=== PATIENT | female | born 1955 | race Caucasian/White ===

== ENCOUNTER → 2017-02-04 | Outpatient (CLI) | payer BC ==
[~2017-02-04] MED LIST: ADVIL200 MG PO; CARDI-OMEGA1000 MG PO; DEXILANT60 MG PO; FAMVIR 500500 MG/TAB PO; FLONASEALLERGY NS; HCTZ 25MG TAB25 MG PO; INH; NORCO 325 MG-51 TAB PO; NORCO 325 MG-7.1 TAB PO; PROAIR HFA0.09 MG/AC IH; ZOCOR 20MG20 MG PO; ZOFRAN 4MG T4 MG/TAB PO
== END ==
LOC: MC.RAD 07:39
DX: Z12.31 Encounter for screening mammogram for malignant neoplasm of breast (principal)

== ENCOUNTER 2017-06-24 02:46 | Emergency (ER) | payer BC ==
[~2017-06-24] VITALS: Ht 165.1 cm; Wt 95.5 kg
[2017-06-24 02:49] VITALS: BP 145/77; PULSE 96; TEMP 97.7
== END 2017-06-24 03:45 | disposition home or self-care (01) ==
LOC: COL.ER 02:46
DX: S01.81XA Laceration without foreign body of other part of head, initial encounter (principal); Z23 Encounter for immunization; W06.XXXA Fall from bed, initial encounter; W22.8XXA Striking against or struck by other objects, initial encounter; Y92.009 Unspecified place in unspecified non-institutional (private) residence as the place of occurrence of the external cause

== ENCOUNTER 2017-07-01 17:05 | Emergency (ER) | payer BC ==
[2017-07-01 17:17] VITALS: BP 190/89; PULSE 74; TEMP 97.5
== END 2017-07-01 17:44 | disposition home or self-care (01) ==
LOC: COL.ER 17:05
DX: S01.312D Laceration without foreign body of left ear, subsequent encounter (principal); X58.XXXD Exposure to other specified factors, subsequent encounter

== ENCOUNTER → 2018-09-16 | Outpatient (CLI) | payer MEDICARE, BC | LOC: MC.RAD 08:54 | DX: Z12.31 Encounter for screening mammogram for malignant neoplasm of breast (principal) ==

== ENCOUNTER 2019-07-26 09:08 | Day surgery (SDC) | payer MEDICARE, BC ==
[2019-07-26] VITALS (553 sets, daily range): BP systolic 97–191; BP diastolic 64–98; PULSE 80–104; TEMP 97.3–98.6; O2SAT 92–99
[~2019-07-26] VITALS: Ht 165.2 cm; Wt 100.0 kg
[2019-07-26 09:56] LABS: HEMATOCRIT 46.5 % (37.0-47.0); HEMOGLOBIN 15.7 g/dl (12.5-16.0); MEAN CELL VOLUME 90 fl (80.0-100.0); MEAN CORPUSCULAR HEMOGLOBIN 31 pg (27.0-31.0); MEAN CORPUSCULAR HGB CONC 34 g/dl (33.0-37.0); MEAN PLATELET VOLUME 8.9 fl (7.4-10.4); PLATELET COUNT 358 K/mm3 (130-400); RED BLOOD COUNT 5.15 M/mm3 (4.10-5.30); REDCELL DISTRIBUTION WIDTH-CV 13.3 % (11.5-14.5)
[2019-07-26 10:05] LABS: PROTHROMBIN TIME 11.9 SECONDS (9.7-12.8)
[2019-07-26 10:08] LABS: PARTIAL THROMBOPLASTIN TIME 30.5 SECONDS (26.0-37.0)
[2019-07-26 10:08] LABS: CALCIUM 9.6 mg/dL (8.4-10.2); CREATININE, serum 0.62 (0.52-1.25); POTASSIUM 4.2 mmol/L (3.4-5.0)
--- NOTE | 2019-07-26 11:34 | NUR ---
SEE MERGE DOCUMENTATION FOR MEDICATION ADMINISTRATION TIMES AND INTRA/POST PROCEDURE SEDATION ASSESSMENTS. PLAN FOR RIGHT RADIAL ACCESS; BARBEAU TEST POSITIVE ON RIGHT HAND. PT PRETREATED FOR IODINE ALLERGY PER PHYSICIAN ORDER.
--- NOTE | 2019-07-26 13:00 | NUR ---
Phone report received from [employer] geoscience laboratory technician Rn at 1250. Pt arrived to ICU bed 5 via bed at 1300. Pt A/O x3. Denies any pain. Right TR band inflated with 14cc air. No hematoma present. Right hand dusky, slow cap refill, radial pulse +1. Verified TR band, right hand circulation and pulse with geoscience laboratory technician RNs. Pt remains on Nitro gtt through Left AC PIV. VSS. Discussed plan of care with pt r/t post cardiac cath checks, TR band, Nitro gtt and medications. Pt verbalized understanding. Call light in reach.
--- NOTE | 2019-07-26 14:45 | NUR ---
Attempted to take 5ml of air out of TR band. Pt started bleeding from incision site. 5ml air reinflated into TR band. Bleeding stopped. No hematoma present. right radial pulse +1. Cap refill >3sec. Updated pt on plan of care r/t TR band and vital signs. Pt verbalized understanding. Call light in reach.
--- NOTE | 2019-07-26 18:00 | NUR ---
Report given to OSMAN Chacon.
--- NOTE | 2019-07-26 18:30 | NUR ---
Pt transferred to [facility] room 15 via wheelchair. Pt walked to bed with steady gait. Pt's and dtr in room. Updated on pt status and plan of care.
--- NOTE | 2019-07-26 19:30 | NUR ---
Report given to Saul BREWER. TR band still in place to right radial artery, but all remaining air removed. Up to BR and voids without difficulty.
[2019-07-27] VITALS (72 sets, daily range): BP systolic 84–133; BP diastolic 51–66; PULSE 66–81; TEMP 97.3; O2SAT 91–96
--- NOTE | 2019-07-27 04:38 | NUR ---
GAVE REPORT OVER THE PHONE TO OSMAN FUNEZ.
--- NOTE | 2019-07-27 04:54 | NUR ---
Pt arrived to floor from [facility]. Patient is alert and oriented with VSS. Pt had cardiac cath done yesterday with stent placement in LAD. Right arm is in stabilizer and site is covered with bandaid. CD&I. no swelling or bleeding noted. pt denies pain in that right arm. pt denies needs at this time. call light within reach, will continue to monitor
[2019-07-27] MEDS ORDERED: BRILINTA90 MG PO (07:55)
[2019-07-27] MEDS ORDERED: ASPIRIN E.C. 8181 MG PO (07:56)
[2019-07-27] MEDS ORDERED: LIPITOR20 MG PO (07:56)
[2019-07-27] MEDS ORDERED: LASIX 20MG TABL20 MG PO (07:56)
[2019-07-27] MEDS ORDERED: COREG12.5 MG PO (07:56)
--- NOTE | 2019-07-27 08:12 | NUR ---
Assessment completed, alert/oriented, vital signs stable, denies any pain or discomfort, right wrist/ radial puncutre site is soft with no signs of hematoma or blleeding, dressing C/D/I, heart RRR/ distal pulses are palapble, lungs CTA/ no resp.difficutly noted, has been in and putting in discharge orders this morning, patient denies needs at this time
--- NOTE | 2019-07-27 08:57 | NUR ---
STEFANIE met with the patient and her , Gadiel (ph#[phone]), to discuss discharge plan. The patient lives outside of [place] with her . She reports independence with ADLs and does not have any DME. The patient's PCP is Dr. Noah Thrasher and she receives her medications at [facility]. She reports no difficulties obtaining her meds. The patient's advanced directives are in EMR. Her DPOA-HC is her and the alternate is Carlos Chapa. The patient plans to return home with her upon discharge. No additional needs at this time.
--- NOTE | 2019-07-27 09:35 | NUR ---
Went in to give patient discharge instructions and she reported feeling lightheaded and like she might pass out, I checked VS and her Blood pressure reading was low at 84/51, I helped her lay down and encouraged her to drink some water, explained that we have started her on some new meds and this likely was the cause and that I would call and see if he wanted to make any changes/ new orders
--- NOTE | 2019-07-27 11:32 | NUR ---
First visit from the sorter pricer. No needs right now.
== END 2019-07-27 13:15 | disposition home or self-care (01) ==
LOC: COL.CAR 09:08 → ICU 13:04 → IMCU 23:41 → MEDICAL 07-27 04:51 → COL.CAR 07-27 13:15
PROVIDERS: Internal Medicine Cardiovascular Disease
DX: I25.10 Atherosclerotic heart disease of native coronary artery without angina pectoris (principal); I25.9 Chronic ischemic heart disease, unspecified; E78.5 Hyperlipidemia, unspecified; I10 Essential (primary) hypertension; Z90.49 Acquired absence of other specified parts of digestive tract; Z82.49 Family history of ischemic heart disease and other diseases of the circulatory system; Z83.3 Family history of diabetes mellitus; Z88.3 Allergy status to other anti-infective agents; Z91.040 Latex allergy status; Z79.82 Long term (current) use of aspirin; Z91.041 Radiographic dye allergy status
CPT/HCPCS: OP; C1725; C1769; C1874; C1887; C9600; J0360; J1200; J1644; J1940; J2250; J3010; J7040; Q9967

== ENCOUNTER 2019-10-01 14:04 | Outpatient (RCR) | payer MEDICARE, BC ==
[~2019-10-01 14:04] MED LIST changes: +ASPIRIN E.C. 8181 MG PO; +BRILINTA90 MG PO; +COREG12.5 MG PO; +LASIX 20MG TABL20 MG PO; +LIPITOR20 MG PO
== END 2019-11-23 | disposition still patient (30) ==
LOC: COL.CR
DX: Z48.812 Encounter for surgical aftercare following surgery on the circulatory system (principal); Z95.5 Presence of coronary angioplasty implant and graft

== ENCOUNTER → 2020-03-01 | Outpatient (CLI) | payer MEDICARE, BC | LOC: MC.RAD 10:49 | DX: Z12.31 Encounter for screening mammogram for malignant neoplasm of breast (principal) ==

== ENCOUNTER 2020-07-16 13:44 | Emergency (ER) | payer MEDICARE, BC ==
[~2020-07-16] VITALS: Ht 165.1 cm; Wt 93.2 kg
[2020-07-16 13:53] VITALS: TEMP 97.9
[2020-07-16 15:30] LABS: BASO # 0.1 (0.0-0.2); BASO % 1.7 % (0.0-2.0); EOS # 0.3 (0.0-0.7); EOS % 3.6 % (0-4.0); GRAN # 4.6 (1.4-6.5); GRAN % 55.6 % (42.2-75.2); HEMATOCRIT 46.4 % (37.0-47.0); HEMOGLOBIN 15.7 g/dl (12.5-16.0); LYMPH # 2.4 (1.2-3.4); LYMPH % 29.3 % (20.0-51.0); MEAN CELL VOLUME 90 fl (80.0-100.0); MEAN CORPUSCULAR HEMOGLOBIN 31 pg (27.0-31.0); MEAN CORPUSCULAR HGB CONC 34 g/dl (33.0-37.0); MEAN PLATELET VOLUME 8.9 fl (7.4-10.4); MONO # 0.8 (0.1-0.6); MONO % 9.4 % (1.7-9.3); PLATELET COUNT 270 K/mm3 (130-400); RED BLOOD COUNT 5.14 M/mm3 (4.10-5.30); REDCELL DISTRIBUTION WIDTH-CV 13.4 % (11.5-14.5)
[2020-07-16 16:06] LABS: ALANINE AMINOTRANSFERASE 36 U/L (4-34); ALBUMIN 4.1 gm/dL (3.5-5.0); ALKALINE PHOSPHATASE 99 U/L (50-136); ANION GAP 9 mmol/L (7-16); AST,SGOT 37 U/L (15-37); BILIRUBIN,TOTAL 0.9 mg/dL (0.0-1.0); BLOOD UREA NITROGEN 15 mg/dL (7-17); CALCIUM 9.2 mg/dL (8.4-10.2); CARBON DIOXIDE 24 mmol/L (22-30); CHLORIDE 105 mmol/L (98-107); CREATININE, serum 0.81 (0.52-1.25); GLUCOSE 87 mg/dL (74-106); POTASSIUM 3.9 mmol/L (3.4-5.0); SODIUM 139 mmol/L (137-145); TOTAL PROTEIN 7.4 gm/dL (6.4-8.2)
[2020-07-16 16:21] LABS: TROPONIN-I < 0.012 ng/mL (0.000-0.035)
[2020-07-16] MEDS ORDERED: NITROSTAT0.4 MG/TAB SL ×3 (16:28→16:46)
[2020-07-16 16:40] VITALS: BP 162/91; PULSE 68
== END 2020-07-16 16:40 | disposition home or self-care (01) ==
LOC: COL.ER 13:44
PROVIDERS: Nurse Practitioner Primary Care
DX: R07.89 Other chest pain (principal); I25.10 Atherosclerotic heart disease of native coronary artery without angina pectoris; Z79.02 Long term (current) use of antithrombotics/antiplatelets; Z79.82 Long term (current) use of aspirin

== ENCOUNTER 2021-06-16 11:01 | Emergency (ER) | payer MEDICARE, BC ==
[~2021-06-16] VITALS: Ht 162.6 cm; Wt 96.4 kg
[~2021-06-16 11:01] MED LIST changes: +NITROSTAT0.4 MG/TAB SL
[2021-06-16 11:50] VITALS: TEMP 98.9
[2021-06-16 13:00] LABS: BASO # 0.1 K/mm3 (0.0-0.2); BASO % 1.6 % (0.0-2.0); EOS # 0.1 K/mm3 (0.0-0.7); GRAN # 5.2 K/mm3 (1.4-6.5); GRAN % 64.8 % (42.2-75.2); HEMATOCRIT 40.1 % (37.0-47.0); HEMOGLOBIN 13.6 g/dl (12.5-16.0); LYMPH # 1.7 K/mm3 (1.2-3.4); LYMPH % 21.6 % (20.0-51.0); MEAN CELL VOLUME 89 fl (80.0-100.0); MEAN CORPUSCULAR HEMOGLOBIN 30 pg (27.0-31.0); MEAN CORPUSCULAR HGB CONC 34 g/dl (33.0-37.0); MEAN PLATELET VOLUME 8.8 fl (7.4-10.4); MONO # 0.9 K/mm3 (0.1-0.6); MONO % 10.8 % (1.7-9.3); PLATELET COUNT 220 K/mm3 (130-400); REDCELL DISTRIBUTION WIDTH-CV 13.5 % (11.5-14.5)
[2021-06-16 13:15] LABS: ALBUMIN 3.6 gm/dL (3.4-4.8); BILIRUBIN,TOTAL 1.3 mg/dL (0.2-1.2); C-REACTIVE PROTEIN 0.38 mg/dL (0.00-0.50); CALCIUM 9.2 mg/dL (8.4-10.2); CREATININE, serum 0.69 mg/dL (0.57-1.11); POTASSIUM 4.4 mmol/L (3.5-4.5); TOTAL PROTEIN 6.6 gm/dL (6.2-8.1)
[2021-06-16 13:51] VITALS: BP 145/98; PULSE 95
== END 2021-06-16 13:51 | disposition home or self-care (01) ==
LOC: COL.ER 11:01
PROVIDERS: Physician Assistant
DX: M51.26 Other intervertebral disc displacement, lumbar region (principal); J45.909 Unspecified asthma, uncomplicated; I25.10 Atherosclerotic heart disease of native coronary artery without angina pectoris; Z79.82 Long term (current) use of aspirin

== ENCOUNTER 2022-10-31 12:45 | Outpatient (RCR) | payer MEDICARE, BC ==
[~2022-10-31 12:45] MED LIST changes: +K-DUR 10 MEQ T10 MEQ PO; +LASIX 40MG TABL40 MG PO; +REPATHA SU140 MG/1 M SQ; +TOPROL XL 25MG25 MG PO
== END 2022-11-03 | disposition home or self-care (01) ==
LOC: MKS.ESL.PT
DX: M54.12 Radiculopathy, cervical region (principal)

== ENCOUNTER 2023-05-28 10:07 | Outpatient (RCR) | payer MEDICARE, BC | END 2023-06-05 | disposition home or self-care (01) | LOC: MKS.ESL.PT | DX: G62.9 Polyneuropathy, unspecified (principal) ==

== ENCOUNTER 2023-07-04 08:15 | Outpatient (RCR) | payer MEDICARE, BC | END 2023-07-06 | disposition home or self-care (01) | LOC: MKS.ESL.PT | DX: M25.561 Pain in right knee (principal); M25.562 Pain in left knee ==

== ENCOUNTER 2023-08-05 09:45 | Outpatient (RCR) | payer MEDICARE, BC | END 2023-08-06 | disposition home or self-care (01) | LOC: MKS.ESL.PT | DX: M25.561 Pain in right knee (principal); M25.562 Pain in left knee ==

== ENCOUNTER 2023-09-02 09:45 | Outpatient (RCR) | payer MEDICARE, BC | END 2023-09-04 | disposition home or self-care (01) | LOC: MKS.ESL.PT | DX: M25.561 Pain in right knee (principal); M25.562 Pain in left knee ==

== ENCOUNTER 2023-12-31 14:23 | Outpatient (RCR) | payer MEDICARE, BC | END 2024-01-04 | disposition home or self-care (01) | LOC: MKS.ESL.PT | DX: M62.81 Muscle weakness (generalized) (principal) ==

== ENCOUNTER 2024-01-29 12:45 | Outpatient (RCR) | payer MEDICARE, BC | END 2024-02-04 | disposition home or self-care (01) | LOC: MKS.ESL.PT | DX: M62.81 Muscle weakness (generalized) (principal) ==

== ENCOUNTER 2024-02-12 08:11 | Emergency (ER) | payer MEDICARE, BC ==
[~2024-02-12] VITALS: Ht 162.6 cm; Wt 90.9 kg
[2024-02-12 08:16] VITALS: TEMP 98.1
[2024-02-12 08:54] LABS: BASO # 0.2 K/mm3 (0.0-0.2); BASO % 1.8 % (0.0-2.0); EOS # 0.1 K/mm3 (0.0-0.7); EOS % 0.7 % (0.0-4.0); GRAN # 6.2 K/mm3 (1.4-6.5); GRAN % 70.6 % (42.2-75.2); HEMATOCRIT 41.6 % (37.0-47.0); LYMPH # 1.2 K/mm3 (1.2-3.4); LYMPH % 13.9 % (20.0-51.0); MEAN CELL VOLUME 90 fl (80.0-100.0); MEAN CORPUSCULAR HEMOGLOBIN 30 pg (27-31); MEAN CORPUSCULAR HGB CONC 34 g/dl (33.0-37.0); MEAN PLATELET VOLUME 9.4 fl (7.4-10.4); MONO # 1.1 K/mm3 (0.1-0.6); MONO % 12.3 % (1.7-9.3); PLATELET COUNT 231 K/mm3 (130-400); RED BLOOD COUNT 4.61 M/mm3 (4.10-5.30)
[2024-02-12 09:31] LABS: ALANINE AMINOTRANSFERASE 12 U/L (0-55); ALBUMIN 3.6 g/dL (3.4-4.8); ALKALINE PHOSPHATASE 62 U/L (40-150); ANION GAP 11 mmol/L (7-16); AST,SGOT 15 U/L (5-34); BLOOD UREA NITROGEN 16 mg/dL (10-20); CALCIUM 9.3 mg/dL (8.4-10.2); CHLORIDE 111 mEq/L (98-107); CREATININE, serum 0.84 mg/dL (0.57-1.11); GLUCOSE 97 mg/dL (70-99); POTASSIUM 4.1 mEq/L (3.5-4.5); SODIUM 142 mEq/L (136-145); TOTAL PROTEIN 6.4 g/dl (6.2-8.1)
[2024-02-12 09:40] LABS: TROPONIN-I < 0.010 ng/mL (0.00-0.033)
[2024-02-12 11:03] VITALS: BP 152/74; PULSE 75
== END 2024-02-12 11:03 | disposition home or self-care (01) ==
LOC: COL.ER 08:11
PROVIDERS: Personal Emergency Response Attendant
DX: R55 Syncope and collapse (principal); Z91.040 Latex allergy status